=== PATIENT | male | born 1965 | race Caucasian/White ===

== ENCOUNTER → 2019-04-27 | Outpatient (CLI) | payer OTHER | LOC: M.MRI 10:19 | DX: M47.816 Spondylosis without myelopathy or radiculopathy, lumbar region (principal); M47.897 Other spondylosis, lumbosacral region; N28.1 Cyst of kidney, acquired; M51.36 Other intervertebral disc degeneration, lumbar region; M48.061 Spinal stenosis, lumbar region without neurogenic claudication; M48.07 Spinal stenosis, lumbosacral region ==